=== PATIENT | female | born 1945 | race Caucasian/White ===

== ENCOUNTER → 2019-09-29 13:28 | Outpatient (CLI) | payer MEDICARE, SELFPAY ==
--- NOTE | ~2019-09-29 | MM_ITS ---
EXAMINATION: MM screening vickey BI w travis HISTORY: Screening mammogram TECHNIQUE: Craniocaudal and mediolateral oblique 3-D tomosynthesis images were obtained and synthetic 2-D images were generated. CAD analysis was submitted and interpreted. COMPARISON: 08/28/2018, 08/21/2017, 08/17/2016 bilateral digital screening mammogram examinations BREAST PARENCHYMAL COMPOSITION: There are scattered areas of fibroglandular density. FINDINGS: There is no evidence of suspicious mass, calcification, or architectural distortion to sugg est malignancy in either breast. There has been no suspicious interval change. IMPRESSION: 1. No mammographic evidence of malignancy. 2. Recommend routine screening mammography in one year. BI-RADS Category 1: Negative Reviewed, dictated and finalized at location A. [employer]
== END ==
PROVIDERS: PCP Family Medicine; Visit Provider Obstetrics & Gynecology
DX: Z12.31 Encounter for screening mammogram for malignant neoplasm of breast (principal)
CPT/HCPCS: 77063; 77067

== ENCOUNTER 2019-10-13 11:58 | Emergency (ER) | payer MEDICARE, SELFPAY ==
--- NOTE | ~2019-10-13 | XR_ITS ---
XR chest 2V DATE: 10/13/2019 12:49 INDICATION: Chest pain TECHNIQUE: PA and lateral views COMPARISON: 11/16/2014 PA and lateral chest FINDINGS: There is chronic discoid scarring in both lower lung zones, also present on 11/16/2014. The lungs are hyperinflated suggesting COPD. No pulmonary infiltrate or consolidation, pleural effusion or pulmonary vascular congestion or pneumo thorax is detected. Normal heart size. No hilar or mediastinal enlargement. Diffuse osteopenia. Scoliosis of the thoracic and lumbar spine. IMPRESSION: Chronic bilateral lower lung discoid scarring, stable since 11/16/2014 Bilateral hyperinflation suggesting obstructive airways disease Reviewed, dictated and finalized at location B. IMPRESSION: Chronic bilateral lower lung discoid scarring, stable since 11/17/19 15 Bilateral hyperinflation suggesting obstructive airways disease
--- NOTE | 2019-10-13 12:30 | ECG_ITS ---
Measurements Intervals [place] Rate: 81 P: 70 OR: 142 QRS: 0 QRSD: 80 T: 55 QT: 360 QTc: 420 Interpretive Statements SINUS RHYTHM ATRIAL PREMATURE COMPLEX EARLY PRECORDIAL R/S TRANSITION MINIMAL Q WAVES- LATERAL LEADS BASELINE ARTIFACT- I, II, III, AVR, AVL, AVF, V4-V6 BORDERLINE ECG Electronically Signed On 10-13-2019 13:49:22 CDT by Zen Zazueta D.O.
--- NOTE | 2019-10-13 12:32 | ED.CHESTPAIN ---
HPI - Chest Pain General Chief Complaint: Chest Pain Stated Complaint: cold Time Seen by Provider: 10/13/19 12:21 Source: patient Mode of arrival: ambulatory Limitations: no limitations History of Present Illness HPI narrative: A 74 y/o female presents to the ED with c/o midsternal CP and a cough. Pt's CP is worse when coughing. 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 Upon further investigation, there are currently no confirmed cases of COVID-19 in [facility]. Pain location: other (midsternal) Exacerbating factors: other (coughing) Related Data Home Medications Medication Instructions Recorded Confirmed alendronate 70 mg tablet 70 mg PO WEEKLY 08/11/19 calcium 600 mg-D3 800 unit-mag11 1 tablet PO DAILY 08/11/19 50 mn-jpre-hmhisu-flaca-s.borat tablet cholecalciferol (vitamin D3) 50 2,000 unit PO DAILY 08/11/19 mcg (2,000 unit) tablet furosemide 20 mg tablet 20 mg PO QAM 08/11/19 hydroxyzine HCl 25 mg tablet 25 mg PO BID PRN 08/11/19 irbesartan 75 mg tablet 75 mg PO DAILY 08/11/19 multivitamin 1 tablet PO DAILY 08/11/19 potassium chloride 20 mEq oral 20 meq PO DAILY 08/11/19 packet Allergies Allergy/AdvReac Type Severity Reaction Status Date / Time propylene glycol Allergy Unknown Unknown Verified 08/11/19 14:26 terbinafine Allergy Unknown Unknown Verified 08/11/19 14:26 Review of Systems Review of Systems: All systems reviewed & are unremarkable except as noted in HPI and below Cardiovascular: Cardiovascular: Reports chest pain (midsternal) Respiratory: Respiratory: Reports cough PMFSH Past Medical History Medical History Afib Cataracts, bilateral Congestive heart failure Fractures toes, fingers History of vaginal delivery HTN (hypertension) Osteoporosis Wears glasses Surgical History Surgical History H/O local excision of skin lesion precancerous spot removed from nose History of dilation and curettage History of tubal ligation Family History Family History Mother Family history of coronary artery disease, Onset Age: 92 Patient's mother is Sibling Family history of malignant neoplasm of breast in first degree relative Father Patient's father is Daughter Breast cancer Social History Social History Smoking status: Former smoker Second hand tobacco smoke exposure: No Smoking end date: 07/30/10 Alcohol intake: never Gender identity (if verbalized by the patient): Female Comments PCP: Dr. Galan Exam Narrative: Exam Narrative: GENERAL: Well-appearing, well-nourished, and in no acute distress. HEAD: Normocephalic, atraumatic. EYES: PERRLA and EOMI. ENT: Nares clear, no rhinorrhea or epistaxis. Mucous membranes moist. NECK: Supple. CHEST: Clear to auscultation. No respiratory distress. HEART: Regular rate and rhythm. No murmur heard. Normal peripheral pulses. ABDOMEN: Soft, mild epigastric tenderness upon palpation, non distended, normal active bowel sounds. EXTREMITIES: Normal range of motion. No edema. SKIN: Warm, dry, no rash. NEURO: No focal deficits. Alert and oriented x3. PSYCH: Normal mood and affect. Course Course Emergency Course: pt sates she is feeling fine no further episodes of pain, I discussed lab , Xray findings . i advised to continue home medications , follow with PMD Vital Signs Vital signs: Vital Signs Temperature 36.9 C 10/13/19 12:48 Pulse Rate 97 10/13/19 12:48 Respiratory Rate 17 10/13/19 12:48 Blood Pressure 137/62 10/13/19 12:48 Pulse Oximetry 100 10/13/19 12:48 Temperature 36.9 C 10/13/19 12:48 Pulse Rate 97 10/13/19 12:55 Respiratory R
[2019-10-13 12:45] LABS: Basophils Percent Auto 0.3 % (0.2-1.2); Eosinophils Percent Auto 0.3 % (0-4.4); Hemoglobin 13.3 g/dL (12.0-15.0); Immature Granulocyte Absolute 0.01 K/mm3 (0.00-0.031); Immature Granulocyte Percent A 0.1 % (0-0.5); Lymphocytes Absolute Auto 1.89 K/mm3 (0.9-3.2); Lymphocytes Percent Auto 26.7 % (18.3-44.2); Mean Corpuscular HGB Conc 33.3 g/dl (32-36); Mean Corpuscular Hemoglobin 32.4 pg (26-34); Mean Corpuscular Volume 97.6 fl (80-100); Mean Platelet Volume 11.1 fl (7.4-10.4); Monocytes Absolute Auto 0.3 K/mm3 (0.1-0.6); Monocytes Percent Auto 4.7 % (2.6-8.5); Neutrophils Absolute Auto 4.8 K/mm3 (1.3-6.7); Neutrophils Percent Auto 67.9 % (45.5-73.1); Platelet Count Result 247 k/mm3 (150-375); Red Cell Distribution Width 13.3 % (11.5-14.5); White Blood Count 7.1 K/mm3 (4.5-10.0)
[2019-10-13 12:48] VITALS: BP 137/62; PULSE 97; RESP 17; TEMP 36.9; O2SAT 100
[2019-10-13 12:55] VITALS: PULSE 97
[2019-10-13 12:55] LABS: INR 0.9; Prothrombin Time 11.9 Seconds (11.1-14.7)
[2019-10-13 12:56] LABS: Partial Thromboplastin Time 27.2 SECONDS (22.3-36.8)
[2019-10-13 12:57] LABS: Blood Urea Nitrogen 14 mg/dL (7-17); Calcium 9.2 mg/dL (8.4-10.2); Carbon Dioxide 32 mmol/L (22-30); Chloride 103 mmol/L (98-107); Estimated CRCL calculation 34 ml/min; Estimated Glomerular Filt Rate 49; Glucose 102 mg/dL (65-105); Potassium 3.6 mmol/L (3.4-5.0); Sodium 138 mmol/L (137-145)
[2019-10-13 13:09] LABS: Troponin I < 0.012 ng/mL (0.000-0.034)
[2019-10-13 14:24] VITALS: BP 107/60; PULSE 72; RESP 13; O2SAT 100
== END 2019-10-13 14:26 | disposition home or self-care (01) ==
PROVIDERS: Emergency Provider Family Medicine; PCP Family Medicine
DX: R07.89 Other chest pain (principal); I48.91 Unspecified atrial fibrillation; I50.9 Heart failure, unspecified; I11.0 Hypertensive heart disease with heart failure; M81.0 Age-related osteoporosis without current pathological fracture; Z87.891 Personal history of nicotine dependence; I49.1 Atrial premature depolarization; R94.31 Abnormal electrocardiogram [ECG] [EKG]
CPT/HCPCS: 36415; 71046; 80048; 84484; 85025; 85610; 85730; 87081; 87804; 87880; 93005; 99284

== ENCOUNTER → 2020-11-04 13:11 | Outpatient (CLI) | payer MEDICARE, SELFPAY ==
--- NOTE | ~2020-11-04 | MM_ITS ---
EXAMINATION: MM screening vickey BI w travis HISTORY: Screening mammogram TECHNIQUE: Craniocaudal and mediolateral oblique 3-D tomosynthesis images were obtained and synthetic 2-D images were generated. CAD analysis was submitted and interpreted. COMPARISON: 09/29/2019, 08/28/2018, 08/21/2017, 08/07/2016 bilateral digital screening mammogram examinatio ns BREAST PARENCHYMAL COMPOSITION: The breasts are heterogeneously dense, which may obscure small masses . FINDINGS: There is no evidence of suspicious mass, calcification, or architectural distortion to sugg est malignancy in either breast. There has been no suspicious interval change. IMPRESSION: 1. No mammographic evidence of malignancy. 2. Recommend routine screening mammography in one year. BI-RADS Category 1: Negative Reviewed, dictated and finalized at location A.
--- NOTE | ~2020-11-04 | DEXA_ITS ---
Bone Density Report Name: Shanae Arellano Age: 75 Sex: Female Ethnicity: White Date of : 1945 Indication: postmenopausal osteoporosis; monitoring treatment; parental hip fracture; height loss; Referring Provider: MARGOT BURROWS Study: Bone densitometry was performed. Exam Date: November 04, 2020 Accession number: [id number] Bone Density: Region BMD T-score Z-score Classification AP Spine (L1-L4) 0.598 -4.1 -1.8 Osteoporosis Femoral Neck (Left) 0.505 -3.1 -1.1 Osteoporosis Total Hip (Left) 0.587 -2.9 -1.2 Osteoporosis Femoral Neck (Right) 0.445 -3.6 -1.6 Osteoporosis Total Hip (Right) 0.514 -3.5 -1.8 Osteoporosis Total Hip Mean 0.551 -3.2 -1.5 Osteoporosis World Health Organization criteria for BMD impression classify patients as: Normal (T-score at or above -1.0), Osteopenia (T-score between -1.0 and -2.5), or Osteoporosis (T-score at or below -2.5). 10-year Fracture Risk: FRAX not reported because: Some T-score for Spine Total or Hip Total or Femoral Neck at or below -2.5 Treated for osteoporosis Previous Exams: Region Exam Age BMD T-score BMD Change BMD Change Date g/cm2 vs Baseline vs Previous AP Spine(L1-L4) 11/04/2020 75 0.598 -4.1 -0.045* -0.051* 08/28/2018 73 0.649 -3.6 0.006 0.036* 08/07/2016 71 0.613 -3.9 -0.030* 0.018 08/07/2016 71 0.595 -4.1 -0.048* -0.048* 06/22/2014 69 0.643 -3.7 Total Hip(Left) 11/04/2020 75 0.587 -2.9 -0.084* -0.055* 08/28/2018 73 0.642 -2.5 -0.029* 0.017 08/07/2016 71 0.625 -2.6 -0.046* -0.046* 06/22/2014 69 0.671 -2.2 Total Hip(Right) 11/04/2020 75 0.514 -3.5 -0.117* -0.058* 08/28/2018 73 0.572 -3.0 -0.059* -0.022 08/07/2016 71 0.595 -2.8 -0.037* -0.037* 06/22/2014 69 0.632 -2.5 *Denotes significance at 95% confidence level, LSC for AP Spine = 0.022 g/cm2, LSC for Total Hip = 0.027 g/cm2 Clinical Information Provided by Patient: Parent has had a hip fracture Is being treated for osteoporosis Has used the following medications: Fosamax (i.e. alendronate), Vitamin D, MTV Patient maximum height was 66 Menopause Age: 56 No regular weight bearing exercise Does not regularly consume dairy products Drinks caffeinated beverages Onset of menses at age 18 Number of children 4 Impre
== END ==
PROVIDERS: PCP Family Medicine; Visit Provider Obstetrics & Gynecology
DX: Z12.31 Encounter for screening mammogram for malignant neoplasm of breast (principal); Z78.0 Asymptomatic menopausal state; M81.0 Age-related osteoporosis without current pathological fracture
CPT/HCPCS: 77063; 77067; 77080

== ENCOUNTER 2021-02-07 20:11 | Emergency (ER) | payer MEDICARE, SELFPAY ==
--- NOTE | ~2021-02-07 | XR_ITS ---
EXAMINATION: XR hand RT min 3V EXAM DATE: 02/07/2021 21:15 INDICATION: [place] Pop When Picking Up Branch, Rt Index Finger Swelling. Initial encounter. TECHNIQUE: Right hand frontal, lateral and oblique projections obtained and reviewed. Comparison is m beth to prior examination from 09/01/2016. FINDINGS: Right metacarpal bones are unremarkable. There are no acute fractures or dislocations iden tified. There is no subcutaneous gas. There is soft tissue swelling over the 2nd digit. There are no radiopaque foreign bodies. Mild polyarticular primary osteoarthritis. IMPRESSION: 1. Right hand exam without acute osseous findings. 2. 2nd finger swelling Reviewed, dictated and finalized at location A.
[2021-02-07 21:02] VITALS: BP 127/77; PULSE 64; RESP 16; TEMP 36.8; O2SAT 99
--- NOTE | 2021-02-07 23:17 | ED.UPPEXIN ---
HPI - Extremity Injury (Upper) General Chief Complaint: Extremity Injury, Upper Stated Complaint: Hand swelling and pain Time Seen by Provider: 02/07/21 22:48 Source: patient Mode of arrival: ambulatory Limitations: no limitations History of Present Illness HPI narrative: Patient was trying to lift a tree branch of her house, felt a pop at the base of the right index prior to arrival to the emergency room. Patient denies other injuries. Related Data Home Medications Medication Instructions Recorded Confirmed calcium 600 mg-D3 800 unit-mag11 1 tablet PO DAILY 08/11/19 12/23/20 50 so-egri-rbapsf-flaca-s.borat tablet cholecalciferol (vitamin D3) 50 2,000 unit PO DAILY 08/11/19 12/23/20 mcg (2,000 unit) tablet furosemide 20 mg tablet 20 mg PO QAM 08/11/19 12/23/20 hydroxyzine HCl 25 mg tablet 25 mg PO BID PRN 08/11/19 12/23/20 irbesartan 75 mg tablet 75 mg PO DAILY 08/11/19 12/23/20 multivitamin 1 tablet PO DAILY 08/11/19 12/23/20 Allergies Allergy/AdvReac Type Severity Reaction Status Date / Time propylene glycol Allergy Unknown Unknown Verified 12/23/20 13:07 terbinafine Allergy Unknown Unknown Verified 12/23/20 13:07 Review of Systems Review of Systems: Narrative: CONSTITUTIONAL: Denies fever, chills, or sweats. EYES: Denies visual changes, redness, or discharge. ENT: Denies rhinorrhea, congestion, sore throat, or otalgia. CARDIOVASCULAR: Denies chest pain, palpitations, or edema. RESPIRATORY: Denies cough or dyspnea. GASTROINTESTINAL: Denies abdominal pain, nausea, vomiting, or diarrhea. GENITOURINARY: Denies dysuria or hematuria. SKIN: Denies rash or itching. MUSCULOSKELETAL: Denies back pain, joint pain, or myalgia. NEUROLOGIC: Denies headache, numbness, or weakness. PSYCHIATRIC: Denies anxiety or depression. [facility] Past Medical History Medical History (Updated 02/07/21 @ 23:23 by Alf Wu MD) Afib Cataracts, bilateral Congestive heart failure Fractures toes, fingers History of vaginal delivery HTN (hypertension) Osteoporosis Wears glasses Surgical History Surgical History H/O local excision of skin lesion precancerous spot removed from nose History of dilation and curettage History of tubal ligation Family History Family History Mother Family history of coronary artery disease, Onset Age: 92 Patient's mother is Sibling Family history of malignant neoplasm of breast in first degree relative Father Patient's father is Daughter Breast cancer Social History Social History Smoking packs per day: 0.5 Smoking cigarettes per day: 10.0 Years smoked: 10 Smoking pack-years: 5.00 Smoking status: Former smoker Tobacco type: cigarettes Second hand tobacco smoke exposure: Yes Smoking end date: 07/30/10 Alcohol intake: never Gender identity (if verbalized by the patient): Female Spiritual care concerns: No Exam Narrative: Exam Narrative: General appearance: Well-developed, well-nourished Skin: Normal color Head: Normocephalic, nontraumatic Chest and respiratory: Airway patent, no respiratory distress, no accessory muscle use Heart: Regular rate/rhythm Vascular: Normal peripheral pulses, normal capillary refill. Musculoskeletal: Right index showed slight swelling, slight tenderness at the base of the right index dorsally, no warmth, no open the skin or discharge. Slight limited finger flexion Neurologic: Alert and oriented ?3, Course Course Emergency Course: Stable Vital Sign
== END 2021-02-07 23:37 | disposition home or self-care (01) ==
PROVIDERS: Emergency Provider Emergency Medicine; PCP Family Medicine
DX: S56.111A Strain of flexor muscle, fascia and tendon of right index finger at forearm level, initial encounter (principal); I48.91 Unspecified atrial fibrillation; I11.0 Hypertensive heart disease with heart failure; I50.9 Heart failure, unspecified; F17.210 Nicotine dependence, cigarettes, uncomplicated; X58.XXXA Exposure to other specified factors, initial encounter
CPT/HCPCS: 73130; 99283

== ENCOUNTER → 2021-06-28 04:00 | Outpatient (CLI) | payer MEDICARE, SELFPAY ==
[2021-06-28 20:04] LABS: SARS-CoV-2 RNA PCR Negative
== END ==
PROVIDERS: PCP Family Medicine; Visit Provider Family Medicine
DX: R05.9 Cough, unspecified (principal); Z20.822 Contact with and (suspected) exposure to COVID-19
CPT/HCPCS: C9803; U0003; U0005

== ENCOUNTER → 2021-11-10 12:11 | Outpatient (CLI) | payer MEDICARE, SELFPAY ==
--- NOTE | ~2021-11-10 | MM_ITS ---
EXAMINATION: MM screening vickey BI w travis HISTORY: Screening TECHNIQUE: Craniocaudal and mediolateral oblique 3-D tomosynthesis images were obtained and synthetic 2-D images were generated. CAD analysis was submitted and interpreted. COMPARISON: Comparison to multiple prior studies sequentially, with oldest reviewed study dated 01/2016. BREAST PARENCHYMAL COMPOSITION: The breasts are heterogeneously dense, which may obscure small masses . FINDINGS: There is possible architectural distortion in the upper outer quadrant of the left breast. The right breast is stable without evidence for malignancy. IMPRESSION: 1. Possible architectural distortion of the left breast. 2. Additional mammographic views and possible breast ultrasound are recommended. BI-RADS Category 0: Incomplete: Needs additional imaging evaluation. Reviewed, dictated and finalized at location A. IMPRESSION: 1. Possible architectural distortion of the left breast. 2. Additional mammographic views and possible breast ultrasound are recommended . BI-RADS Category 0: Incomplete: Needs additional imaging evaluation.
== END ==
PROVIDERS: PCP Family Medicine; Visit Provider Obstetrics & Gynecology
DX: Z12.31 Encounter for screening mammogram for malignant neoplasm of breast (principal); R92.8 Other abnormal and inconclusive findings on diagnostic imaging of breast
CPT/HCPCS: 77063; 77067

== ENCOUNTER → 2021-11-22 09:14 | Outpatient (CLI) | payer MEDICARE, SELFPAY ==
--- NOTE | ~2021-11-22 | MMUS_ITS ---
EXAMINATION: MM diagnostic vickey LT w travis, US breast LT limited HISTORY: Follow-up left breast asymmetry TECHNIQUE: Additional 3-D tomosynthesis images of the left breast were performed and synthetic 2-D im ages were generated. CAD analysis was submitted and interpreted. High resolution Limited left breast ultrasound was performed. COMPARISON: Comparison to multiple prior studies sequentially, with oldest reviewed study dated 03/2017. BREAST PARENCHYMAL COMPOSITION: Breast composed of scattered areas of fibroglandular density FINDINGS: MAMMOGRAPHIC FINDINGS: There are no suspicious masses, calcifications or architectural distortion in the left breast to sugg est malignancy. ULTRASOUND: Limited left breast ultrasound: Normal heterogeneous echotexture in the left breast. At 3:00, 4 cm fr om the nipple there is a 4 mm intramammary lymph node. No suspicious masses to suggest malignancy. IMPRESSION: 1. No evidence for malignancy in the left breast. 2. Routine yearly screening mammogram and regular clinical breast examination are recommended. BI-RADS Category 2: Benign finding(s). Reviewed, dictated and finalized at location A. IMPRESSION: 1. No evidence for malignancy in the left breast. 2. Routine yearly screening mammogram and regular clinical breast examination a re recommended. BI-RADS Category 2: Benign finding(s).
== END ==
PROVIDERS: PCP Family Medicine; Visit Provider Obstetrics & Gynecology
DX: N63.25 Unspecified lump in the left breast, overlapping quadrants (principal); R92.8 Other abnormal and inconclusive findings on diagnostic imaging of breast
CPT/HCPCS: 76642; 77061; 77065; G0279

== ENCOUNTER → 2022-12-12 12:20 | Outpatient (CLI) | payer MEDICARE, SELFPAY ==
--- NOTE | ~2022-12-12 | MM_ITS ---
EXAMINATION: MM screening vickey BI w travis HISTORY: Screening mammogram, family history of breast cancer in her sister and daughter. TECHNIQUE: Craniocaudal and mediolateral oblique 3-D tomosynthesis images were obtained and synthetic 2-D images were generated. CAD analysis was submitted and interpreted. COMPARISON: 11/22/2021, 11/10/2021, 11/04/2020, 09/29/2019, 08/28/2018 BREAST PARENCHYMAL COMPOSITION:The breasts are heterogeneously dense, which may obscure small masses. FINDINGS: Stable focal distortion in the upper left breast. No suspicious mass, calcification, or arc hitectural distortion are identified in either breast to suggest malignancy. There has been no suspic ious interval change. IMPRESSION: No mammographic evidence of malignancy. Recommend routine screening mammography in one year. BI-RADS Category 2: Benign finding(s). Reviewed, dictated and finalized at [facility].
--- NOTE | ~2022-12-12 | DEXA_ITS ---
Bone Density Report Name: YOKO KANG Age: 77 Sex: Female Ethnicity: White Date of : 1945 Indication: postmenopausal osteoporosis; monitoring treatment; parental hip fracture; height loss; Referring Provider: MARGOT BURROWS Study: Bone densitometry was performed. Exam Date: December 12, 2022 Accession number: [id number] Bone Density: Region BMD T-score Z-score Classification AP Spine (L1-L4) 0.625 -3.8 -1.4 Osteoporosis Femoral Neck (Left) 0.477 -3.4 -1.2 Osteoporosis Total Hip (Left) 0.575 -3.0 -1.2 Osteoporosis Femoral Neck (Right) 0.457 -3.5 -1.4 Osteoporosis Total Hip (Right) 0.554 -3.2 -1.4 Osteoporosis Total Hip Mean 0.565 -3.1 -1.3 Osteoporosis World Health Organization criteria for BMD impression classify patients as: Normal (T-score at or above -1.0), Osteopenia (T-score between -1.0 and -2.5), or Osteoporosis (T-score at or below -2.5). 10-year Fracture Risk: FRAX not reported because: Some T-score for Spine Total or Hip Total or Femoral Neck at or below -2.5 Treated for osteoporosis Previous Exams: Region Exam Age BMD T-score BMD Change BMD Change Date g/cm2 vs Baseline vs Previous AP Spine(L1-L4) 12/12/2022 77 0.625 -3.8 -0.018 0.027* 11/04/2020 75 0.598 -4.1 -0.045* -0.051* 08/28/2018 73 0.649 -3.6 0.006 0.036* 08/07/2016 71 0.613 -3.9 -0.030* 0.018 08/07/2016 71 0.595 -4.1 -0.048* -0.048* 06/22/2014 69 0.643 -3.7 Total Hip(Left) 12/12/2022 77 0.575 -3.0 -0.095* -0.012 11/04/2020 75 0.587 -2.9 -0.084* -0.055* 08/28/2018 73 0.642 -2.5 -0.029* 0.017 08/07/2016 71 0.625 -2.6 -0.046* -0.046* 06/22/2014 69 0.671 -2.2 Total Hip(Right) 12/12/2022 77 0.554 -3.2 -0.078* 0.039* 11/04/2020 75 0.514 -3.5 -0.117* -0.058* 08/28/2018 73 0.572 -3.0 -0.059* -0.022 08/07/2016 71 0.595 -2.8 -0.037* -0.037* 06/22/2014 69 0.632 -2.5 *Denotes significance at 95% confidence level, LSC for AP Spine = 0.022 g/cm2, LSC for Total Hip = 0.027 g/cm2 Clinical Information Provided by Patient: Parent has had a hip fracture Is being treated for osteoporosis Has used the following medications: Prolia (i.e. denosumab), Vitamin D, Calcium, MTV Patient maximum height was 66 Menopause Age: 56 No regular weight bearing exercise D
== END ==
PROVIDERS: PCP Family Medicine; Visit Provider Obstetrics & Gynecology
DX: Z12.31 Encounter for screening mammogram for malignant neoplasm of breast (principal); M81.0 Age-related osteoporosis without current pathological fracture; Z78.0 Asymptomatic menopausal state
CPT/HCPCS: 77063; 77067; 77080

== ENCOUNTER 2024-02-15 13:39 | Outpatient (CLI) | payer MEDICARE, SELFPAY ==
--- NOTE | ~2024-02-15 | MM_ITS ---
EXAMINATION: MM screening vickey BI w travis HISTORY: Screening TECHNIQUE: Craniocaudal and mediolateral oblique 3-D tomosynthesis images were obtained and synthetic 2-D images were generated. CAD analysis was submitted and interpreted. COMPARISON: Comparison to multiple prior studies sequentially, with oldest reviewed study dated 08/28. BREAST PARENCHYMAL COMPOSITION: Not dense: There are scattered areas of fibroglandular density. FINDINGS: There is no evidence of suspicious mass, calcification, or architectural distortion to sugg est malignancy in either breast. There has been no suspicious interval change. IMPRESSION: 1. No mammographic evidence of malignancy. 2. Recommend routine screening mammography in one year. BI-RADS Category 1: Negative Reviewed, dictated and finalized at location B.
== END 2024-02-15 13:40 ==
LOC: MICIMG 13:40
PROVIDERS: PCP Family Medicine; Visit Provider Obstetrics & Gynecology
DX: Z12.31 Encounter for screening mammogram for malignant neoplasm of breast (principal)
CPT/HCPCS: 77063; 77067

== ENCOUNTER 2024-12-15 08:32 | Outpatient (CLI) | payer MEDICARE, SELFPAY ==
--- NOTE | ~2024-12-15 | DEXA_ITS ---
Bone Density Report Name: YOKO KANG Age: 79 Sex: Female Ethnicity: White Date of : 1945 Indication: postmenopausal; screening for osteoporosis; height loss; Referring Provider: JASPER VILLANUEVA Study: Bone densitometry was performed. Exam Date: December 15, 2024 Accession number: [id number] Bone Density: Region BMD T-score Z-score Classification AP Spine(L2, L3, L4) 0.678 -3.6 -1.0 Osteoporosis Femoral Neck (Left) 0.562 -2.6 -0.4 Osteoporosis Total Hip (Left) 0.649 -2.4 -0.5 Osteopenia Femoral Neck (Right) 0.484 -3.3 -1.1 Osteoporosis Total Hip (Right) 0.636 -2.5 -0.6 Osteoporosis Total Hip Mean 0.642 -2.5 -0.6 Osteopenia World Health Organization criteria for BMD impression classify patients as: Normal (T-score at or above -1.0), Osteopenia (T-score between -1.0 and -2.5), or Osteoporosis (T-score at or below -2.5). 10-year Fracture Risk: FRAX not reported because: Some T-score for Spine Total or Hip Total or Femoral Neck at or below -2.5 Treated for osteoporosis Clinical Information Provided by Patient: Is being treated for osteoporosis Has used the following medications: Reclast (i.e. zoledronate), Vitamin D, Calcium Patient maximum height was 66.0 Menopause Age: 56 No regular weight bearing exercise Does not regularly consume dairy products Drinks caffeinated beverages Onset of menses at age 17 Number of children 4 Impression: The patient has osteoporosis, based on the Total Spine T-score. Discussion: It is important to ask patients whether they are taking their medications and to encourage continued and appropriate compliance with their osteoporosis therapies to reduce fracture risk. It is also important to review their risk factors and encourage appropriate calcium and vitamin D intakes, exercise, fall prevention and other lifestyle measures. Follow-Up: Consider a repeat BMD and Vertebral Fracture Assessment (VFA) exam in 2 years or sooner if medically necessary, to reassess this patient's status. Reported by: BALJEET on 12/15/2024 9:10:00 AM. Reviewed, dictated and finalized at location A.
--- OUTSIDE RECORDS SUMMARY | 2024-12-15 08:37 | XMS_ITS | Continuity of Care Document ---
Author Organization [facility] Address [address] [place] [address] Phone Care Team Providers Care Molding Process Technician Name Role Phone Armstrong OD, Tristan Unavailable Unavailable Advance Directives Directive Yes / No Effective Date File Name No Information Encounters Encounter Description Practice Location Reason(s) For Visit Diagnoses Date Provider Providers Copied on Encounter [facility], [address], [place], [place], [id number], [place] tel:[phone] [facility] No Information Oct-0 4-200 5 Armstrong OD Tristan. [address], [place], [address], [place]. tel:[phone] Family History Family Member Type Diagnosis Age At Onset No Information Payers Payer name Insurance type Covered alliance party ID Authoriza tion(s) No Information Social History Type Description Quantity Date Captured Comments Sex Female Smoking Status No Information Chief Complaint And Reason For Visit No Information Reason For Referral Reason For Referral No Information History Of Present Illness Encounter Date Complaint History Of Prese nt Illness No Information Functional Status Date Functional Assessmen t No Information Instructions Date Instruction Additional Infor mation No Information Assessments Type Assessment Date No Information Patient Care Teams Name Effective Dates (start - stop) Status Members No Information
== END 2024-12-15 08:33 | disposition home or self-care (01) ==
LOC: ANHIMG 08:32
PROVIDERS: PCP Family Medicine; Visit Provider Obstetrics & Gynecology
DX: M81.0 Age-related osteoporosis without current pathological fracture (principal); M85.89 Other specified disorders of bone density and structure, multiple sites
CPT/HCPCS: 77080

== ENCOUNTER 2025-02-16 11:25 | Outpatient (CLI) | payer MEDICARE, SELFPAY ==
--- NOTE | ~2025-02-16 | MM_ITS ---
EXAMINATION: MM screening [facility]key BI w travis HISTORY: Screening TECHNIQUE: Craniocaudal and mediolateral oblique 3-D tomosynthesis images were obtained and synthetic 2-D images were generated. CAD analysis was submitted and interpreted. COMPARISON: Comparison to multiple prior studies sequentially, with oldest reviewed study dated 08/28. BREAST PARENCHYMAL COMPOSITION: There are scattered areas of fibroglandular density. FINDINGS: There is no evidence of suspicious mass, calcification, or architectural distortion to sug gest malignancy in either breast. IMPRESSION: 1. No mammographic evidence of malignancy. 2. Recommend routine screening mammography in one year. BI-RADS Category 1: Negative Reviewed, dictated and finalized at location B.
== END 2025-02-16 11:26 | disposition home or self-care (01) ==
LOC: MICIMG 11:26
PROVIDERS: PCP Family Medicine; Visit Provider Obstetrics & Gynecology
DX: Z12.31 Encounter for screening mammogram for malignant neoplasm of breast (principal)
CPT/HCPCS: 77063; 77067